=== PATIENT | female | born 1955 | race Caucasian/White ===

== ENCOUNTER 2021-11-09 20:20 | Inpatient (IN) | payer MEDICARE, BC ==
[~2021-11-09] VITALS: Ht 157.5 cm; Wt 92.8 kg
[~2021-11-09 20:20] MED LIST: MAGNESIUM SULFATE 2GM 50 ML IV ONE
[2021-11-09] MEDS ORDERED: IPRATRPIUM/ALBUTEROL 0.5/2.5MG 3 ML NEBU. ONE (20:43)
[2021-11-09] MEDS ORDERED: DEXAMETHASONE SOD PHOS 10 MG/ML VIAL. ONE (20:45)
[2021-11-09] MEDS ORDERED: IPRATRPIUM/ALBUTEROL 0.5/2.5MG 3 ML NEBU. NEB ONE (20:45)
[2021-11-09] MEDS ORDERED: DEXAMETHASONE SOD PHOS 10 MG/ML VIAL. IM ONE (20:45)
--- NOTE | 2021-11-09 20:47 | PHYS DOC ---
Adult General Chief Complaint Chief Complaint: SHORTNESS OF BREATH HPI HPI Patient is a 66-year-old female with a past medical history of COPD and current smoker and [id number] diabetes as well as a recently diagnosed UTI on nitrofurantoin who presents with a chief complaint of acute onset shortness of breath and wheeze. States she was diagnosed with a UTI earlier today and took her first nitrofurantoin about 4 to 5 hours ago and has been well. States that over the last hour she has had increased shortness of breath and wheeze and increased mucus production. Denies headache, changes in vision, lightheadedness, chest pain, abdominal pain, nausea, vomiting, diarrhea. Denies any itching, rash or hives. Review of Systems Review of Systems Review of systems otherwise unremarkable except noted in HPI Physical Exam Physical Exam Constitutional: Well developed, well nourished, no acute distress, non-toxic appearance. [] HENT: Normocephalic, atraumatic, oropharynx moist, no oral exudates, nose normal. [] Eyes: conjunctiva normal, no discharge. [] Neck: Normal range of motion, no tenderness, supple, no stridor. [] Cardiovascular: Sinus tachycardia Lungs & Thorax: Tachypnea, decreased air movement, bilateral wheeze with no rhonchi, accessory muscle use Abdomen: soft, no tenderness, no masses, no pulsatile masses. [] Skin: Warm, dry, no erythema, no rash. [] Back: No tenderness, no CVA tenderness. [] Extremities: No tenderness, no cyanosis, no clubbing, ROM intact, no edema. [] Neurologic: Alert and oriented X 3, normal motor function, normal sensory function, able to sit, stand and walk without issue, no focal deficits noted. [] Psychologic: Affect normal, judgement normal, mood normal. [] EKG EKG [] Radiology/Procedures Radiology/Procedures [] Heart Score C/O Chest Pain: No Risk Factors: Risk Factors: DM, Current or recent (<one month) smoker, HTN, HLP, family h istory of CAD, obesity. Risk Scores: Risk Factors: DM, Current or recent (<one month) smoker, HTN, HLP, family history of CAD, obesity. Course & Med Decision Making Course & Med Decision Making Patient is a 66-year-old female with COPD who presents with a chief complaint of acute onset shortness of breath, wheeze and mucus production, and cough over the last hour Vital signs notable for tachycardia, hypertension, tachypnea and hypoxia on room air to 88%. Physical exam noted above placed on the monitor with IV access established. Steroids and breathing treatment begun. [] Dragon Disclaimer Dragon Disclaimer This electronic medical record was generated, in whole or in part, using a voice recognition dictation system. Departure Departure: Impression: Primary Impression: Shortness of breath Additional Impressions: COPD exacerbation Hypoxemia Hypomagnesemia Admitting Physician: Triston Abebe Condition: STABLE Referrals: JOSE ANDERSON MD (PCP) Problem Qualifiers DADA PHILLIP MD November 09, 2021 20:47
[2021-11-09 21:29] LABS: BASO % 0 % (0-3); EOS % 0 % (0-3); HEMATOCRIT 39.2 % (36.0-47.0); HEMOGLOBIN 12.7 g/dL (12.0-15.5); LYMPH # 1.2 x10^3/uL (1.0-4.8); LYMPH % 9 % (24-48); MEAN CORPUSCULAR HEMOGLOBIN 29 pg (25-35); MEAN CORPUSCULAR HGB CONC 32 g/dL (31-37); MEAN CORPUSCULAR VOLUME 91 fL (79-100); MONO # 0.1 x10^3/uL (0.0-1.1); MONO % 1 % (0-9); NEUT # 11.6 x10^3uL (1.8-7.7); NEUT % 89 % (31-73); PLATELET COUNT 342 x10^3/uL (140-400); RED BLOOD COUNT 4.32 x10^6/uL (3.50-5.40); RED CELL DISTRIBUTION WIDTH 15.9 % (11.5-14.5); WHITE BLOOD COUNT 13.1 x10^3/uL (4.0-11.0)
[2021-11-09] MEDS ORDERED: ONDANSETRON PF 4 MG/2 ML VIAL. IVP ONE (21:30)
[2021-11-09 21:37] LABS: CREATININE 1.3 mg/dL (0.6-1.0); GFR 40.7; POTASSIUM 3.8 mmol/L (3.5-5.1)
--- NOTE | 2021-11-09 21:48 | RAD ---
Exam: Chest one view INDICATION: Shortness of breath, pain TECHNIQUE: Frontal view of the chest Comparisons: None FINDINGS: The cardiomediastinal silhouette and pulmonary vessels are within normal limits. The lung and pleural spaces are clear. IMPRESSION: No acute cardiopulmonary process. Electronically signed by: Francisco Cheng MD (11/09/2021 9:46 PM) NGO[facility]
[2021-11-09] MEDS ORDERED: IOHEXOL 350 MG/ML 100 ML VIAL. IV ONE (22:15)
[2021-11-09 23:36] LABS: BGAS PH 7.38 (7.35-7.45)
[2021-11-09] MEDS ORDERED: MAGNESIUM SULFATE 2GM 50 ML IV ONE (23:45)
[2021-11-09] MEDS ORDERED: IV RINGERS SOLUTION,LACTATED 1,000 ML IV ONE (23:45)
[2021-11-09] MEDS ORDERED: cefTRIAXone SODIUM 1 GM VIAL ONE (23:50)
[2021-11-09] MEDS ORDERED: IV NORMAL SALINE 50ML 50 ML ONE (23:50)
--- NOTE | 2021-11-09 23:50 | RAD ---
CT angiogram of the chest, abdomen and pelvis: Reason for examination: Shortness of breath, chills, UTI. History of COPD and left kidney cancer with one third of kidney removed. Helical images were obtained through the chest, abdomen and pelvis with intravenous administration of 75 cc Omnipaque 350 using angiographic protocol. 3-D MIPS reconstruction was performed in sagittal a nd coronal planes. Exposure: One or more of the following individualized dose reduction techniques were utilized for thi s examination: 1. Automated exposure control 2. Adjustment of the mA and/or kV according to patient size 3. Use of iterative reconstruction technique. No abnormality seen at the thyroid gland. The trachea and mainstem bronchi show no intraluminal lesio ns. No abnormality seen at the esophagus. The thoracic aorta shows no aneurysmal dilatation or dissection. The heart size is normal with no per icardial effusion. No pulmonary embolus is evident however pulmonary arteries are not optimally opacified with the angio graphic protocol. The lung key show small noncalcified pulmonary nodules in the right upper lobe peripherally (serie s 5 image 22) measuring 4 mm in size, in the left upper lobe peripherally (series 5 image 23) measuri ng 2.5 mm in size, in the right upper lobe peripherally (series 5 image 29) measuring 3.2 mm in size, in the superior segment of the right lower lobe posterior medially (series 5 image 31) measuring 2.9 mm in size, in the mid right lung field in the right upper lobe laterally (series 5 image 56) measur ing 5 mm in size and in the right middle lobe posterior laterally measuring 6 mm in size. These may r epresent granuloma however small pulmonary metastases cannot be excluded and close follow-up is recom mended with reevaluation in 6 months. No consolidated infiltrates or pleural effusions are seen. No p neumothorax is seen. There are degenerative changes in the thoracic spine with Schmorl's nodes present in the superior end plate of the T11 vertebral body and inferior endplate of the T12 vertebral body. There is a mild ante rior wedge compression deformity of the T12 vertebral body. The liver shows a small 4.7 mm hypodense lesion which may represent a small cyst. No other hepatic no dules are seen. No abnormality seen at the spleen or pancreas. Gallbladder is surgically absent. There is a 2.4 x 2.1 x 3.4 cm hypodense mass at the anterior superior aspect of the right adrenal gla nd. There is also a 1.7 x 1.6 x 1.9 cm mass present inferiorly in the lateral limb of the left adrena l gland. These may represent adrenal cysts however adrenal metastases cannot be excluded. The right kidney shows no renal mass, renal calculus, hydronephrosis or evidence of obstructive uropa thy. The left kidney shows postop changes posterior superiorly. Adjacent to the postoperative changes there is a 1.6 x 1.3 x 1.9 cm hypodense nodule which appears to contain fat with a Hounsfield unit o f -11.6. No renal calculi, hydronephrosis or obstructive uropathy is seen in the left kidney. The colon shows a few diverticuli in the sigmoid colon but no evidence of diverticulitis or colitis. No abnormality seen at the appendix. The small intestinal tract shows no abnormal dilatation, wall th ickening or obstruction. The stomach shows no wall thickening or obstruction. No abnormality seen at the duodenum. No abnormality seen at the bladder or vaginal cuff. No free fluid or free air is seen in the abdomen or pelvis. There are some degenerative changes in the spine. No acute bony abnormalities are seen. IMPRESSION: No pulmonary embolus was identified however the pulmonary arteries were not optimally opacified with this angiographic protocol. Multiple small noncalcified nodules in the lungs bilaterally. These may represent granuloma however s mall pulmonary metastases cannot be excluded. Bilateral adrenal masses measuring 3.4 cm on the right and 1.9 cm on the left in greatest dimensions. Adrenal metastasis cannot be excluded. 1.6 x 1.3 x 1.9 cm hypodense nodule in the left kidney adjacent to the site of partial nephrectomy wh ich appears to contain fat with Hounsfield unit value of -11.6. Electronically signed by: La Horan MD (11/09/2021 11:48 PM) [facility]
[2021-11-10] MEDS ORDERED: ONDANSETRON PF 4 MG/2 ML VIAL. IVP PRN (00:15)
--- NOTE | 2021-11-10 01:26 | EKG ---
[address] [address] Test Date: 2021-11-09 Test Time: 23:17:58 Pat Name: JAI COLIN Department: Room: 113 A Gender: F [employer] Architect: : [id number] Requested By: DADA PHILLIP Order Number: [id number] Reading MD: Alessandro Leblanc MD Measurements Intervals [place] Rate: 117 P: 9 ID: [id number] QRS: 47 QRSD: 74 T: 36 QT: 330 QTc: 465 Interpretive Statements SINUS TACHYCARDIA Electronically Signed On 11-15-2021 9:15:00 CDT by Alessandro Leblanc MD
--- NOTE | 2021-11-10 01:27 | EKG ---
[address] [address] Test Date: 2021-11-09 Test Time: 21:26:44 Pat Name: JAI COLIN Department: Room: 113 A Gender: F Assistant Manager Trainee: : [id number] Requested By: DADA PHILLIP Order Number: [id number] Reading MD: Alessandro Leblanc MD Measurements Intervals [place] Rate: 135 P: -49 LA: 104 QRS: 72 QRSD: 78 T: 54 QT: 336 QTc: 509 Interpretive Statements SINUS TACHYCARDIA Electronically Signed On 11-15-2021 9:15:08 CDT by Alessandro Leblanc MD
[2021-11-10 02:00] VITALS: BP 118/77
--- NOTE | 2021-11-10 03:38 | NUR ---
PT ADMITTED TO 113 VIA EMS. PT ASSISTED X2 FROM GURNEY TO BED. VS OBTAINED. PT IS AOX4. PT DENIES ANY PAIN AT THIS TIME. POC DISCUSSED W/ VERBALIZED UNDERSTANDING. CALL LIGHT IN REACH WILL CONTINUE TO MONITOR.
[2021-11-10 05:53] VITALS: BP 107/66
[2021-11-10] MEDS ORDERED: LISI10TA16 PO (09:00)
[2021-11-10] MEDS ORDERED: ALLO300T PO (09:00)
[2021-11-10] MEDS ORDERED: ATOR40TA59 PO (09:00)
[2021-11-10] MEDS ORDERED: METF500T16 PO (09:00)
[2021-11-10] MEDS ORDERED: TORS20TA2 PO (09:00)
[2021-11-10 11:20] VITALS: BP 99/66
[2021-11-10] MEDS: ACETAMINOPHEN 325 MG TABLET PO PRN ×2 (11:34→20:11)
[2021-11-10] MEDS ORDERED: PANTOPRAZOLE IV 40 MG VIAL. IVP ONE (13:00)
[2021-11-10 13:28] LABS: CALCIUM 8.2 mg/dL (8.5-10.1); CREATININE 1.4 mg/dL (0.6-1.0); GFR 37.4; POTASSIUM 4.1 mmol/L (3.5-5.1)
[2021-11-10] MEDS: ALLOPURINOL 300 MG TABLET. PO SCH (13:28)
[2021-11-10] MEDS: metFORMIN 500 MG TABLET PO SCH ×2 (13:28→20:11)
[2021-11-10] MEDS: DEXAMETHASONE SOD PHOS 10 MG/ML VIAL. IVP SCH (13:29)
[2021-11-10 13:41] LABS: ALBUMIN 2.9 g/dL (3.4-5.0); ALBUMIN/GLOBULIN RATIO 0.8 (1.0-1.7); TOTAL BILIRUBIN 0.3 mg/dL (0.2-1.0); TOTAL PROTEIN 6.7 g/dL (6.4-8.2)
--- NOTE | 2021-11-10 14:33 | HP ---
DATE OF SERVICE: 11/10/2021 ADMIT DATE: 11/10/2021 HISTORY OF PRESENT ILLNESS: The patient is a 66-year-old female patient who presented to the Emergency Room of [facility] with a chief complaint of acute onset of shortness of breath and wheezing. She stated that she is followed by a urologist for her left kidney tumor that was resected and apparently was diagnosed with UTI yesterday morning and she took her first nitrofurantoin about 4-5 hours prior to arrival to the Emergency Room and since then she developed nausea, vomiting and shortness of breath; however, she denied any chest pain. Denied any cough or phlegm. She is known to have Crohn's disease and she has chronic diarrhea according to her and she was extensively investigated in the Emergency Room and was found to have leukocytosis and her blood gases showed she has mild hypoxia. Her D-dimer was slightly elevated at 1.21, however, PT/INR and APTT are normal. Her chemistry stated that she was also found to be severely hypomagnesemic with a serum magnesium 0.7. She apparently had chest x-ray and a CT scan of the chest, abdomen and pelvis. Her chest x-ray showed cardiomediastinal silhouette and pulmonary vessels are within normal limits. Lungs and pleural spaces are clear and there is no acute cardiopulmonary process. The CT scan of the chest, abdomen and pelvis with contrast showed that the patient has no pulmonary embolus was identified. However, the pulmonary arteries are not optimally opacified with the ____ angiographic protocol. She has multiple small noncalcified nodules in the lungs bilaterally. This may represent granuloma; however, small pulmonary metastases cannot be excluded. Bilateral adrenal masses measuring 3.4 cm on the right and 1.9 cm in the greatest dimension, adrenal metastases cannot be excluded. She has 1.6 x 1.3 x 1.9 cm hypodense nodule in the left kidney, adjacent to the site of partial nephrectomy, which appears to contain fat with Hounsfield unit of 11.6. The CT scan of the chest showed no evidence of consolidative infiltrate and pleural effusion, no pneumothorax seen. The patient was admitted with acute hypoxic respiratory failure, COPD exacerbation and severe hypomagnesemia. Her shortness of breath is possibly side effect of nitrofurantoin. She was admitted, started on IV antibiotic and magnesium sulfate as well as dexamethasone together with albuterol and Atrovent. PAST MEDICAL HISTORY: Significant for renal cell carcinoma, status post left-sided partial nephrectomy, hypertension, hyperlipidemia, gastroesophageal reflux disease, fibromyalgia, osteoarthritis and chronic back pain. PAST SURGICAL HISTORY: Significant for cholecystectomy, left partial nephrectomy, total abdominal hysterectomy, bilateral salpingo-oophorectomy, bilateral cataract extraction, has had bilateral hand fractures treated with cast. ALLERGIES: SHE IS ALLERGIC TO SULFA DRUGS, COMPAZINE, MORPHINE AND PENICILLIN. MEDICATIONS: She is currently on the following medications: She is on atorvastatin 40 mg once a day, lisinopril 10 mg once a day, torsemide 20 mg daily, metformin 500 mg twice a day and allopurinol 300 mg once a day. FAMILY HISTORY: She has 2 brothers younger and still alive. Her mother at age of 81 because of metastatic lung cancer that spread to the liver and brain. Her stepfather because of prostate cancer. Her biological father is still alive at the age of 92. SOCIAL HISTORY: She is . She has 3 daughters. She continues to smoke 1-1.5 pack a day, has been a smoker for about 40 years. She does not drink alcohol or use recreational drugs. 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 REVIEW OF SYSTEMS: The patient denied any blurring of vision. She has bilateral cataract extraction, but denied any glaucoma or macular degeneration. Denied any earache, tinnitus or sensorineural deafness. Denied any nosebleed, stuffy nose or postnasal drip. Denied any sore throat, sore tongue, toothache, hoarseness of voice. She did complain of nausea and vomiting. She has also had chronic diarrhea. She has Crohn's disease according to her. Did complain of dysuria. Denied any chest pain. Did complain of cough with shortness of breath and chest tightness. Denied any chills, rigors or fever. PHYSICAL EXAMINATION: GENERAL: On arrival to the Emergency Room, the patient was tachypneic, tachycardic and hypoxic. VITAL SIGNS: There was no pallor, jaundice, cyanosis or thyromegaly. No jugular venous distention. No lower limb edema. Her heart rate was 126, blood pressure was 152/89, temperature was 97.7, respiratory rate was 40 and oxygen saturation was 85% on room air. HEAD, EYES, EARS, NOSE, AND THROAT: Normocephalic, atraumatic. NECK: Supple. HEART: Normal first and second heart sounds. No gallop, rub or murmur. CHEST: Showed central trachea, equally reduced expansion, air entry, vesicular breath sounds with bilateral wheezing. The patient was using accessory muscles. ABDOMEN: Distended, soft, nontender. NEUROLOGIC: She was alert, oriented x 3 with normal motor and sensory function and the patient is able to ambulate without assistance or assistive devices. PSYCHOLOGIC: The affect, judgment and mood were all normal. LABORATORY DATA: The patient has lab work, which showed a white cell count of 13.1, hemoglobin 12.7, hematocrit was 39, MCV 91, and platelet count 342,000 with normal manual differential. Her chemistry showed a serum sodium 142, potassium 3.8, chloride 104, bicarbonate 27, anion gap of 11, BUN 20, creatinine 1.3. Estimated GFR was 40 mL per minute. Her glucose is 110, calcium was 8 and troponin I high sensitivity was 10. Her arterial blood gases showed a pH of 7.38, pCO2 of 34, pO2 of 68, bicarbonate 20, and oxygen saturation was 93% on FiO2 of 28%. Her prothrombin time, INR and APTT were normal. D-dimer was high at 1.21. Her chest x-ray showed no acute cardiopulmonary process and CT angio of the chest, abdomen and pelvis with contrast showed that the patient has no pulmonary emboli. Multiple small noncalcified nodules in the lungs bilaterally. This may represent granulomas. However, small pulmonary metastases cannot be excluded. She has bilateral adrenal masses measuring 3.4 cm on the right and 1.9 cm on the left in greater dimension. Adrenal metastases cannot be excluded. The patient has 1.6 x 1.3 x 1.9 cm hypodense nodules on the left kidney, adjacent to the site of partial nephrectomy, which appears to contain fat with a Hounsfield Unit of only 11.6. ASSESSMENT: 1. The patient was admitted with acute hypoxic respiratory failure. 2. Chronic obstructive pulmonary disease exacerbation. 3. Severe hypomagnesemia. The patient has a multitude of other medical problems including: A. Left-sided partial nephrectomy for renal cell carcinoma, possible metastasis to adrenal glands and small nodules of the lung. B. Hypertension. C. Hyperlipidemia. D. Gastroesophageal reflux disease. E. Fibromyalgia. F. Osteoarthritis. G. Chronic back pain. PLAN: I have reconciled all her medications. I will hold her torsemide and will continue with IV antibiotic, IV steroids as well as nebulized albuterol and Atrovent. KIP/BESSIE/NILO DR: KIP/vicki TID: [id number]
[2021-11-10 15:09] VITALS: BP 116/75
[2021-11-10] MEDS: IPRATRPIUM/ALBUTEROL 0.5/2.5MG 3 ML NEBU. NEB SCH ×2 (15:23→18:57)
[2021-11-10 19:32] VITALS: BP 117/68
[2021-11-10] MEDS: LACTOBACILLUS RHAMNOSUS GG 1 CAPSULE. PO SCH (20:11)
[2021-11-10] MEDS: MONTELUKAST 10 MG TABLET. PO SCH (20:11)
[2021-11-10] MEDS: ATORVASTATIN CALCIUM 20 MG TABLET PO SCH (20:11)
[2021-11-10 23:08] VITALS: BP 108/61
[2021-11-11] MEDS: IPRATRPIUM/ALBUTEROL 0.5/2.5MG 3 ML NEBU. NEB SCH ×4 (05:29→19:27)
[2021-11-11 05:49] VITALS: BP 97/50
[2021-11-11 05:59] LABS: BASO % 0 % (0-3); EOS % 0 % (0-3); HEMATOCRIT 33.6 % (36.0-47.0); HEMOGLOBIN 10.8 g/dL (12.0-15.5); LYMPH # 1.2 x10^3/uL (1.0-4.8); LYMPH % 5 % (24-48); MEAN CORPUSCULAR HEMOGLOBIN 29 pg (25-35); MEAN CORPUSCULAR HGB CONC 32 g/dL (31-37); MEAN CORPUSCULAR VOLUME 91 fL (79-100); MONO # 0.6 x10^3/uL (0.0-1.1); MONO % 2 % (0-9); NEUT % 93 % (31-73); PLATELET COUNT 271 x10^3/uL (140-400); RED BLOOD COUNT 3.71 x10^6/uL (3.50-5.40); RED CELL DISTRIBUTION WIDTH 16.1 % (11.5-14.5); WHITE BLOOD COUNT 24.8 x10^3/uL (4.0-11.0)
[2021-11-11 06:15] LABS: CALCIUM 8.7 mg/dL (8.5-10.1); CREATININE 1.4 mg/dL (0.6-1.0); GFR 37.4; MAGNESIUM 2.1 mg/dL (1.8-2.4); POTASSIUM 4.2 mmol/L (3.5-5.1)
[2021-11-11 08:12] LABS: % BANDS 9 % (0-9); % LYMPHS 7 % (24-48); % MONOS 1 % (0-10); % SEGS 83 % (35-66)
[2021-11-11 08:14] LABS: PLT ESTIMATE ADEQUATE (ADEQUATE)
[2021-11-11] MEDS: ALLOPURINOL 300 MG TABLET. PO SCH (08:24)
[2021-11-11] MEDS: PANTOPRAZOLE IV 40 MG VIAL. IVP SCH (08:24)
[2021-11-11] MEDS: DEXAMETHASONE SOD PHOS 10 MG/ML VIAL. IVP SCH (08:24)
[2021-11-11] MEDS: metFORMIN 500 MG TABLET PO SCH ×2 (08:25→20:05)
[2021-11-11] MEDS: LACTOBACILLUS RHAMNOSUS GG 1 CAPSULE. PO SCH ×2 (08:26→20:05)
[2021-11-11] MEDS: TORSEMIDE 10 MG TABLET PO SCH (09:00)
[2021-11-11] MEDS: LISINOPRIL 10 MG TABLET PO SCH (09:00)
--- NOTE | 2021-11-11 09:10 | NUR ---
Holding BP meds this am due to low blood pressure reading. Will reassess BP in 2 hours and determine if it is appropriate to administer medications at this time.
[2021-11-11 10:45] VITALS: BP 114/70
[2021-11-11] MEDS ORDERED: FLUCONAZOLE 100 MG TABLET. PO ONE (11:45)
[2021-11-11] MEDS: PHENAZOPYRIDINE 200 MG TABLET. PO PRN ×2 (13:09→20:06)
[2021-11-11 15:25] VITALS: BP 112/64
[2021-11-11 19:51] VITALS: BP 127/66
[2021-11-11] MEDS: ATORVASTATIN CALCIUM 20 MG TABLET PO SCH (20:05)
[2021-11-11] MEDS: MONTELUKAST 10 MG TABLET. PO SCH (20:05)
[2021-11-11 23:34] VITALS: BP 113/69
--- NOTE | 2021-11-12 01:23 | PN ---
DATE: 11/11/2021 SUBJECTIVE: The patient is sitting in the chair comfortably, in no apparent distress. She continued to be somewhat huffing and puffing, but surprisingly, she is now at 96% on room air at rest and she maintained her oxygen saturation at 94% on exertion. The only complaint now is that she has continued to have frequency and burning sensation, did receive only 1 dose of nitrofurantoin, but I believe that her symptoms were allergic reaction to nitrofurantoin. PHYSICAL EXAMINATION: GENERAL: When I examined her, she looked well and was in no apparent distress, pale, but not jaundiced or cyanosed. No thyromegaly. No jugular venous distention. No lower limb edema. VITAL SIGNS: Her heart rate was 76, blood pressure was 114/70, temperature was 98.9, respiratory rate 20, and oxygen saturation was 91%. HEAD, EYES, EARS, NOSE, AND THROAT: Normocephalic, atraumatic. NECK: Supple. HEART: Showed normal first and second heart sounds. No gallop, rub or murmur. CHEST: Clear to auscultation, no crepitation or rhonchi. ABDOMEN: Distended, soft, nontender. NEUROLOGIC: She was grossly intact. Her intake was 1100, no output was recorded. LABORATORY DATA: Her lab work this morning showed a white cell count of 24,800, hemoglobin 10.8, hematocrit 33.6, MCV 91, and platelet count 271,000. Her chemistry this morning showed a serum sodium 138, potassium 4.2, chloride 102, bicarbonate 22, anion gap of 14, BUN 27, creatinine 1.4. Estimated GFR was 37 mL per minute, her glucose 144, calcium was 8.7, magnesium was 2.1. Her prothrombin time, INR and APTT are normal. D-dimer was 1.21. ASSESSMENT: 1. Acute hypoxic respiratory failure, improved. 2. Chronic obstructive pulmonary disease exacerbation. 3. Severe hypomagnesemia, resolved. Her serum magnesium is 2.1. 4. The patient has multiple other medical problems including: A. Left-sided partial nephrectomy for renal cell carcinoma with possible metastasis to adrenal glands and small nodules of the lung. B. Hypertension. C. Hyperlipidemia. D. Gastroesophageal reflux disease. E. Fibromyalgia. F. Osteoarthritis. G. Chronic back pain. PLAN: I have held her torsemide. Continue with IV antibiotic, IV steroids as well as nebulized albuterol and Atrovent. We will also add Pyridium and Diflucan and I will call her urologist's office to find out the culture and sensitivity of her urine to adjust the antibiotic accordingly. NICOLE DR: Allison TID: [id number]
[2021-11-12 05:51] VITALS: BP 129/83
[2021-11-12] MEDS: IPRATRPIUM/ALBUTEROL 0.5/2.5MG 3 ML NEBU. NEB SCH ×2 (06:16→12:05)
[2021-11-12] MEDS: PANTOPRAZOLE IV 40 MG VIAL. IVP SCH (08:28)
[2021-11-12] MEDS: DEXAMETHASONE SOD PHOS 10 MG/ML VIAL. IVP SCH (08:28)
[2021-11-12] MEDS: metFORMIN 500 MG TABLET PO SCH (08:29)
[2021-11-12] MEDS: PHENAZOPYRIDINE 200 MG TABLET. PO PRN (08:29)
[2021-11-12] MEDS: LACTOBACILLUS RHAMNOSUS GG 1 CAPSULE. PO SCH (08:29)
[2021-11-12] MEDS: ALLOPURINOL 300 MG TABLET. PO SCH (08:32)
[2021-11-12 09:05] VITALS: BP 125/79
[2021-11-12] MEDS: TORSEMIDE 10 MG TABLET PO SCH (09:07)
[2021-11-12] MEDS: LISINOPRIL 10 MG TABLET PO SCH (09:07)
[2021-11-12 11:05] VITALS: BP 126/75
[2021-11-12 12:46] LABS: BASO % 0 % (0-3); EOS % 0 % (0-3); HEMATOCRIT 35.2 % (36.0-47.0); HEMOGLOBIN 11.2 g/dL (12.0-15.5); LYMPH # 1.4 x10^3/uL (1.0-4.8); LYMPH % 7 % (24-48); MEAN CORPUSCULAR HEMOGLOBIN 29 pg (25-35); MEAN CORPUSCULAR HGB CONC 32 g/dL (31-37); MEAN CORPUSCULAR VOLUME 91 fL (79-100); MONO # 0.6 x10^3/uL (0.0-1.1); MONO % 3 % (0-9); NEUT # 18.2 x10^3uL (1.8-7.7); NEUT % 90 % (31-73); PLATELET COUNT 300 x10^3/uL (140-400); RED BLOOD COUNT 3.88 x10^6/uL (3.50-5.40); RED CELL DISTRIBUTION WIDTH 15.8 % (11.5-14.5); WHITE BLOOD COUNT 20.2 x10^3/uL (4.0-11.0)
[2021-11-12 13:03] LABS: CALCIUM 9.1 mg/dL (8.5-10.1); CREATININE 1.4 mg/dL (0.6-1.0); GFR 37.4; POTASSIUM 3.9 mmol/L (3.5-5.1)
[2021-11-12] MEDS ORDERED: ALBU2.5V8 IH (13:41)
[2021-11-12] MEDS ORDERED: CEFD300C PO (13:41)
--- NOTE | 2021-11-12 15:26 | NUR ---
PT LEFT AT APPROX 1500 VIA AMBULATION THE THE DOOR WITH STAFF WHERE WAS WAITING
--- NOTE | 2021-11-13 01:48 | DS ---
DATE OF DISCHARGE: 11/12/2021 HOSPITAL COURSE: The patient is a 66-year-old female patient who was admitted through the Emergency Room of [facility] with a complaint of shortness of breath and wheezing. She stated that she is followed by urologist for her left kidney tumor that was resected, apparently was diagnosed with UTI and she took her first nitrofurantoin about 4-5 hours prior to arrival to the Emergency Room. Since then, she developed nausea, vomiting, shortness of breath; however, she denied any chest pain. Denied any cough or phlegm. She is known to have Crohn's disease and she has had chronic diarrhea according to her. She was extensively investigated in the Emergency Room, and was found to have leukocytosis. Her blood gases showed that she has mild hypoxia. D-dimer was slightly elevated at 1.21. However, PT/INR and APTT were normal. Her chemistry was also found to have severe hypomagnesemia with a serum magnesium of 0.7. She apparently had a chest x-ray and CT scan of the chest, abdomen or pelvis. Her chest x-ray showed cardiomediastinal silhouette and pulmonary vessels are within normal limits. Lungs and pleural spaces are clear. There is no acute cardiopulmonary process. CT scan of the chest, abdomen and pelvis with contrast showed that the patient has no pulmonary embolus ____ pulmonary arteries are not optimally ____. She has multiple small noncalcified nodules in the lungs bilaterally, this may represents granulomas; however, small pulmonary metastases cannot be excluded. She has bilateral adrenal masses measuring 3.4 cm on the right and 1.9 cm in the greatest dimension and adrenal metastasis cannot be excluded. She has 1.6 x 1.3 x 1.9 cm hypodense nodule in the left kidney, adjacent to the site of partial nephrectomy. She appears to contain fat with Hounsfield units of 11.6. CT scan of the chest showed no evidence of consolidative infiltrate or pleural effusion. No pneumothorax is seen. The patient was admitted with acute hypoxic respiratory failure, COPD exacerbation, severe hypomagnesemia as well as urinary tract infection and POSSIBLE ALLERGIC REACTION TO NITROFURANTOIN. I did start her on IV ceftriaxone. We discontinued her nitrofurantoin. I will replenish her magnesium. We did start her on dexamethasone together with albuterol and Atrovent and she did well. Her urine culture obtained that I obtained from urologist's office showed that she has grown more than 100,000 colony forming units per mL of gram-negative rods identified as Escherichia coli, sensitive to ceftriaxone and the patient was treated with IV ceftriaxone, phenazopyridine. Continued with her other medication and did very well. PHYSICAL EXAMINATION: GENERAL: When I saw her today, she looked well and was clearly in no apparent respiratory distress. There is no pallor, jaundice, cyanosis or thyromegaly. No jugular venous distention. No limb edema. VITAL SIGNS: Her heart rate was 109, blood pressure is 125/79, temperature was 97.7, respiratory rate was 18 and oxygen saturation was 94% on room air. HEAD, EYES, EARS, NOSE, AND THROAT: Normocephalic, atraumatic. NECK: Supple. HEART: Showed normal first and second heart sounds. No gallop or murmur. CHEST: Clear to auscultation. No crepitation or rhonchi. ABDOMEN: Distended, soft, nontender. NEUROLOGIC: She was grossly intact. LABORATORY DATA: This morning showed a white cell count of 20,000, hemoglobin 11, hematocrit 35, MCV 91, and platelet count of 300,000. Her chemistry showed a serum sodium 137, potassium 3.9, chloride 101, bicarbonate 24, anion gap of 12, BUN 26, creatinine 1.4. Estimated GFR was 37 mL per minute. Her glucose 146, calcium was 9.1. DISCHARGE MEDICATIONS: The patient was discharged home to continue on the following medications: Albuterol sulfate by inhaler 1 puff every 4 hours as needed; cefdinir 300 mg twice a day for 5 more days; tapering course of steroids in the form of prednisone 40 mg once a day for 3 days, 30 mg once a day for 3 days, 20 mg once a day for 3 days and 10 mg once a day for 10 days; allopurinol 300 mg once a day, atorvastatin calcium 40 mg at bedtime; lisinopril 10 mg once a day and metformin 500 mg twice a day. FINAL DISCHARGE DIAGNOSES: 1. Acute hypoxic respiratory failure, resolved. 2. Chronic obstructive pulmonary disease. 3. Severe hypomagnesemia, resolved. Her serum magnesium has risen from 0.7-2.1. 4. POSSIBLE ALLERGIC REACTION TO NITROFURANTOIN. 5. The patient has left-sided partial nephrectomy for renal cell carcinoma with possible metastases to adrenal glands and small nodules in the lung. 6. Chronic kidney disease. 7. The patient has multiple other medical problems including: A. Hypertension. B. Hyperlipidemia. C. Gastroesophageal reflux disease. D. Fibromyalgia. E. Osteoarthritis. F. Chronic back pain. KIP/MASHA/SETH DR: Allison TID: [id number]
== END 2021-11-12 14:20 | disposition home or self-care (01) | DRG 189 ==
LOC: ER 20:20 → ER HOLD 11-10 00:24 → 1 SOUTH 11-10 00:30
PROVIDERS: ADMIT Hospitalist; ATTEND Hospitalist
DX: J96.01 Acute respiratory failure with hypoxia (principal); R65.11 Systemic inflammatory response syndrome (SIRS) of non-infectious origin with acute organ dysfunction; J44.1 Chronic obstructive pulmonary disease with (acute) exacerbation; C64.2 Malignant neoplasm of left kidney, except renal pelvis; K50.90 Crohn's disease, unspecified, without complications; N39.0 Urinary tract infection, site not specified; E11.22 Type 2 diabetes mellitus with diabetic chronic kidney disease; E78.5 Hyperlipidemia, unspecified; E83.42 Hypomagnesemia; F17.200 Nicotine dependence, unspecified, uncomplicated; G89.29 Other chronic pain; I12.9 Hypertensive chronic kidney disease with stage 1 through stage 4 chronic kidney disease, or unspecified chronic kidney disease; K21.9 Gastro-esophageal reflux disease without esophagitis; M19.90 Unspecified osteoarthritis, unspecified site; M79.7 Fibromyalgia; N18.9 Chronic kidney disease, unspecified; Z85.528 Personal history of other malignant neoplasm of kidney; Z90.5 Acquired absence of kidney; Z90.710 Acquired absence of both cervix and uterus; Z98.41 Cataract extraction status, right eye; Z98.42 Cataract extraction status, left eye; Z63.4 Disappearance and death of family member; Z79.84 Long term (current) use of oral hypoglycemic drugs; B96.20 Unspecified Escherichia coli [E. coli] as the cause of diseases classified elsewhere; Z88.8 Allergy status to other drugs, medicaments and biological substances
CPT/HCPCS: 36415; 71045; 71275; 74177; 80048; 80053; 82803; 82947; 83735; 84484; 85007; 85025; 85379; 85610; 85730; 93005; 94640; 96365; 96366; 96372; 96375; C9113; J0696; J1100; J2405; J3010; J3475; J7120; Q9967; 99285-25